=== PATIENT | female | born 1950 | race Caucasian/White ===

== ENCOUNTER 2017-12-20 14:33 | Emergency (ER) | payer SELFPAY ==
[~2017-12-20] VITALS: Ht 154.9 cm; Wt 72.6 kg
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
--- NOTE | 2017-12-20 15:15 | NUR ---
pt taken down to radiology for CT in [facility], in no acute distress.
[2017-12-20 15:21] LABS: BASOPHILS # (AUTO) 0.1 K/uL (0.0-8.0); BASOPHILS % (AUTO) 0.5 % (0.0-2.0); EOSINOPHILS # (AUTO) 0.1 K/uL (0.0-0.7); HEMATOCRIT 39.4 % (31.2-41.9); HEMOGLOBIN 13.4 g/dL (10.9-14.3); LYMPHOCYTES # (AUTO) 1.8 K/uL (20.0-40.0); LYMPHOCYTES % (AUTO) 16.7 % (20.5-51.5); MEAN CORPUSCULAR HGB CONC 34 g/dL (32.3-35.6); MEAN CORPUSCULAR VOLUME 87.8 fL (75.5-95.3); MONOCYTES # (AUTO) 0.6 K/uL (2.0-10.0); NEUTROPHILS # (AUTO) 8.5 K/uL (1.8-8.9); NEUTROPHILS % (AUTO) 76.8 % (38.5-71.5); PLATELET COUNT (AUTO) 258 K/uL (179-408); RED BLOOD CELL COUNT(AUTO) 4.48 MIL/uL (3.63-4.92)
[2017-12-20 15:30] LABS: CREATININE 0.9 mg/dL (0.6-1.3); POTASSIUM 3.8 mmol/L (3.5-5.1)
[2017-12-20 15:36] LABS: BILIRUBIN,TOTAL 0.2 mg/dL (0.2-1.0); TOTAL PROTEIN, SERUM 7.9 g/dL (6.4-8.2)
--- NOTE | 2017-12-20 15:56 | NUR ---
pt returned from CT in [facility], in no acute distress
--- NOTE | 2017-12-20 16:07 | NUR ---
[employer] at bedside speaking to pt
--- NOTE | 2017-12-20 16:49 | NUR ---
[employer] had just left. Per Dr Rodriguez, this patient has small subarachnoid bleed from CT report. Patient is AOx4, MARRUFO, calm & breathing easily, c/o right-sided head pains, MD aware.
[2017-12-20] MEDS ORDERED: ONDANSETRON IV *ER 4 MG/2 ML VIAL IV ONE (17:06)
[2017-12-20] MEDS ORDERED: MORPHINE SULFATE 2 MG/1 ML DISP.SYRIN IV ONE (17:15)
[2017-12-20] MEDS ORDERED: MORPHINE SULFATE 4 MG/1 ML DISP.SYRIN ONE (17:30)
[2017-12-20] MEDS ORDERED: ONDANSETRON 4 MG/2 ML VIAL ONE (17:31)
--- NOTE | 2017-12-20 17:45 | NUR ---
[facility] Jeff here to transfer patient. report given. pt in no acute distress. Addendum: 12/20/17 at 1753 by YORTEGA Kirby [employer] Jeff here to transfer patient. report given. pt in no acute distress. Pt transferred with imaging disk, copy of ED chart. Belongings given to .
--- NOTE | 2017-12-20 17:50 | NUR ---
report given to Hattie DAVIDSON at [facility].
== END 2017-12-20 17:50 | disposition short-term general hospital (02) ==
LOC: ER 14:33
DX: S06.6X9A Traumatic subarachnoid hemorrhage with loss of consciousness of unspecified duration, initial encounter (principal); R79.89 Other specified abnormal findings of blood chemistry; V43.62XA Car passenger injured in collision with other type car in traffic accident, initial encounter; Y92.410 Unspecified street and highway as the place of occurrence of the external cause; Y93.89 Activity, other specified; Y99.8 Other external cause status
CPT/HCPCS: 36415; 70450; 70486; 71045; 73020; 73560; 73590; 73600; 73620; 85025; A4663; J2270; J2405